=== PATIENT | male | born 1965 | race Caucasian/White ===

== ENCOUNTER 2016-05-16 02:12 | Emergency (ER) | payer MEDICAID ==
[~2016-05-16] VITALS: Ht 177.8 cm; Wt 81.6 kg
[2016-05-16 02:12] VITALS: BP 148/89; PULSE 130; PULSE 92; RESP 14; TEMP 98.1; O2SAT 96
--- NOTE | 2016-05-16 02:12 | NUR ---
Patient to [facility] for evaluation. Side rails up. Report given to NEMO HOPPER.
--- NOTE | 2016-05-16 02:29 | NUR ---
Pt sitting in hallway chair, in no acute distress. Respirations even and unlabored. Pt brought to ED by wen for evaluation for OK to book. Pt was found walking, per pt has warrant. Pt had no medical complaints until taken into custody, pt informed officers that he takes insulin and has not taken insulin in 2 weeks.
--- NOTE | 2016-05-16 02:48 | NUR ---
WILLOW Chen IN [facility] examining patient.
[2016-05-16] MEDS ORDERED: INSULIN REGULAR, HUMAN 10 UNITS/0.1 ML INJ SUBCUT ONE (03:00)
[2016-05-16 03:40] VITALS: BP 132/82; PULSE 89; RESP 14; TEMP 98.1
--- NOTE | 2016-05-16 03:50 | NUR ---
Patient with [facility] and verbalizes understanding. ER MD discussed with patient the results and treatment provided. Patient in stable condition. ID arm band removed. Patient educated on pain management and to follow up with PMD. Pain Scale 0/10. Opportunity for questions provided and answered.
[2016-05-27 16:08] VITALS: O2SAT 96
== END 2016-05-16 03:50 | disposition home or self-care (01) ==
LOC: SED 02:12
DX: Z02.89 Encounter for other administrative examinations (principal); E11.65 Type 2 diabetes mellitus with hyperglycemia
CPT/HCPCS: 96372; 99283